=== PATIENT | female | born 1950 | race Caucasian/White ===

== ENCOUNTER 2020-04-06 06:24 | Day surgery (SDC) | payer OTHER ==
[2020-04-06] MEDS ORDERED: Ringers Lactate 1,000 ML IV ONE (06:57)
[2020-04-06] MEDS ORDERED: CEFAZOLIN/SWI 1gm 1 GM/10 ML SYR ONE (06:57)
[2020-04-06] MEDS ORDERED: propofoL 200 MG/20 ML VIAL IV ONE ×4 (07:12→08:42)
[2020-04-06] MEDS ORDERED: MIDAZOLAM HCL 2 MG/2 ML INJ ONE (07:12)
[2020-04-06] MEDS ORDERED: LIDOCAINE 1% MPF 5 ML VIAL ONE (07:12)
[2020-04-06] MEDS ORDERED: dexAMETHasone 10 MG/ML VIAL ONE (07:12)
[2020-04-06] MEDS ORDERED: FENTANYL CITR 100 MCG/2 ML ONE (07:12)
[2020-04-06] MEDS ORDERED: LIDOCAINE 1% W/EPI 1:100,000 MDV 50 ML VIAL ONE (07:42)
[2020-04-06] MEDS ORDERED: NA CHLORIDE 0.9% 1,000 ML ONE (07:42)
[2020-04-06] MEDS ORDERED: KETOROLAC 30 MG/ML INJ ONE (08:56)
[2020-04-06] MEDS ORDERED: HYDROCODONE/APAP 5/325 MG TAB ONE (09:30)
--- NOTE | 2020-04-06 09:30 | OP ---
Surgeon: PEGGY PEÑALOZA Intraoperative Consultation Note Reason For Consultation: Bladder lesion. Procedures: Cystoscopy and fulguration of the bladder biopsy site. Consult/operative Note: I was intraoperatively consulted following a bladder biopsy for a lesion obs erved in the trigone at the bladder neck. Dr. Metzger had already biopsied the lesion and there was some mild persistent oozing that she was concerned about and wished my assistance to manage. I thus entered the operating suite, and using a Bugbee electrode, fulgurated the area of the biopsy until n o additional bleeding was noted. Her bladder was then decompressed and the scope removed. The remai nder of the bladder was surveyed in its entirety and no additional mucosal lesions, foreign bodies, o r stones were noted. ANNIKA/PAT Voice ID: [id number] Report ID: [id number]
[2020-04-06 09:53] VITALS: BP 142/82; TEMP 97.1; O2SAT 98
--- NOTE | 2020-04-06 11:00 | OP ---
Date of Procedure: 04/06/2020 Surgeon: Riri Metzger MD Preoperative Diagnoses: Postmenopausal bleeding, cervical mass. The patient is a smoker and pelvic pain. 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 Postoperative Diagnoses: Postmenopausal bleeding, cervical mass. The patient is a smoker and pelvic pain. Possible cervical malignant tumor. Procedures Performed: 1.Cervical colposcopy with cervical punch biopsies x2, endocervical curettage. 2.Endometrial biopsy with a Pipelle. 3.Cystoscopy with biopsy of a suspicious trigonal lesion very superficial. Anesthesia: MAC. Specimens: Cervical biopsies, endometrial curette, Pipelle sample of the endometrial lining, then bl adder trigone biopsy. Estimated Blood Loss: Minimal. Complications: None. Intraoperative Consultation: Dr. Robert Carrington, urologist for cauterization and hemostasis of the b iopsied lesion in the bladder. Drains: None. Condition: The patient's condition is stable. Findings: Uterus immobile, anteflexed, slightly deviated to the left, enlarged in size. There is a mass that was palpable. Cervix completely discernible. Excoriated necrotic mass. The parametrial a reas on both sides on the light and left infiltrated more towards the pelvic sidewall on the left carina e than the right. Then, no invasion into the rectum on examination clearly and then anteriorly into the bladder. No bladder mass has been seen. Transitional epithelial abnormality given the patient's history of smoking. This was biopsied. Both ureteric orifices were patent and had strong jets of urine from them. The patient is 70-year-old presented with postmenopausal bleeding without having any cervical cancer screening in many years and she has been a smoker. On examination in the office, Pap smear was done at the initial visit, and this came out as high-grade LOLITA, positive for HPV. On transvaginal ultrasound, there was awake cervical mass, but the uterus in the lower part was enlar ged as well. There was not very good clarity on the outlines of the mass or the extent. So she was counseled on the need for histopathological diagnosis of her condition. So, presuming the mass, cervical colposcopy biopsy and ECC were discussed. Exam under anesthesia as this can help me take better biopsies and get hemostasis needed and then second endometrial sampling as the canal is v olivier difficult to find. Plan hysteroscopy, D and C. If this is not possible due to the tumor, then a t least a Pipelle biopsy to make sure that there was no uterine tumor extending down into the cervix and possible cystoscopy as needed. Description Of Procedure: After informed consent was verified, 1 g of Ancef was given. The patient was taken back to OR and placed in supine fashion on the operating table. MAC was given. Placed in dorsal lithotomy position. Speculum was placed to expose the cervix. Acetic acid applied, visualize d, there was a tumor in the cervix that was necrotic and possibly encompassing and replacing the enti re cervix. So, biopsies were taken x2 adequately. Then, ECC was performed. Pipelle was introduced into the cervical canal as it was discerned with the curette. Then, it was pa ssed to about 7.5 cm and 2 passes were taken and sample was retrieved and placed in a surgical specim en cup with formalin. Once this was complete, there was good hemostasis. Pressure was applied and cystoscopy with the next one. A prep with Betadine x3 was done. A 17-Somali sheath, 30-degree lens, normal saline were used for cy stoscopy. The area above the trigone, dome of the bladder, sidewalls were all unremarkable. Both ur eteric orifices normal and jets of urine from them without any evidence of ureteric obstruction. No evidence of any bladder tumor. Anterior vaginal wall was unremarkable as well as the trigone. On th e trigone, there was superficial epithelial abnormality besides the squamous metaplasia. This appear ed to be needing a biopsy, so the bladder was drained, the sheath was changed to a 21-Somali, and a b iopsy forceps was placed, and the superficial biopsy was taken. Once this was done, the tissue was h anded for permanent pathology. There was bleeding from the base of the tumor, which was needing caut erization. I do not have privileges for this, so I went ahead and requested an intraoperative consul tation and please refer to Dr. Carrington for his procedure note. After good hemostasis, bladder was dr cardoso. The patient was recovered from anesthesia. Instrument, needle, and sponge counts were correc t at the end of the case. The patient tolerated the procedure well. She will follow up with me in 1 week. Her partner was notified of findings after the patient gave permission for this. EMIR/PAT Voice ID: [id number] Report ID: [id number]
== END 2020-04-06 09:50 | disposition home or self-care (01) ==
LOC: OR 06:24
PROVIDERS: ATTEND Obstetrics & Gynecology
PROC: 0UJH8ZZ Inspection of Vagina and Cul-de-sac, Via Natural or Artificial Opening Endoscopic (ICD-10-PCS; 2020-04-06)
PROC: 0UBG7ZX Excision of Vagina, Via Natural or Artificial Opening, Diagnostic (ICD-10-PCS; 2020-04-06)
PROC: 0UDB7ZX Extraction of Endometrium, Via Natural or Artificial Opening, Diagnostic (ICD-10-PCS; principal; 2020-04-06 07:30)
DX: R10.2 Pelvic and perineal pain (principal); N95.0 Postmenopausal bleeding; I10 Essential (primary) hypertension; F17.210 Nicotine dependence, cigarettes, uncomplicated; R19.09 Other intra-abdominal and pelvic swelling, mass and lump; Z20.822 Contact with and (suspected) exposure to COVID-19
CPT/HCPCS: 88305; 57454; 58110; 57100; U0002; J2704 ×4; J2250; J3010; J1100; J0690; J7120; J7030; 72197; 82565; A9577